=== PATIENT | male | born 2000 | race Hispanic/Latino ===

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

== ENCOUNTER 2021-01-09 18:33 | Emergency (ER) | payer MEDICAID, OTHER, SELFPAY ==
[2021-01-09] MEDS ORDERED: LORAZEPAM 2 MG/ML 1 ML VIAL ONE (18:42)
[2021-01-09 19:04] LABS: BASOPHILS % (AUTO) 0.3 % (0.0-5.0); EOSINOPHILS % (AUTO) 0.1 % (0.0-8.0); HEMATOCRIT 38.3 % (42-54); MEAN CORPUSCULAR HEMOGLOBIN 30.4 pg (27.0-33.0); MEAN CORPUSCULAR HGB CONC 35.2 g/dL (32.0-36.0); MEAN CORPUSCULAR VOLUME 86.3 fL (80-100); MONOCYTES % (AUTO) 3.6 % (3.0-13.0); NEUTROPHILS % (AUTO) 88.3 % (40.0-77.0); PLATELET COUNT (AUTO) 278 K/uL (130-400); RED BLOOD CELL COUNT(AUTO) 4.44 MIL/uL (4.50-6.20); RED CELL DISTRIBUTION WIDTH 11.9 % (11.0-15.5)
[2021-01-09 19:16] LABS: CREATININE 1.1 mg/dL (0.5-1.5); POTASSIUM 3.2 mmol/L (3.5-5.1)
[2021-01-09 19:21] LABS: ALBUMIN 4.6 g/dL (3.5-5.0); BILIRUBIN,TOTAL 0.5 mg/dL (0.2-1.0); TOTAL PROTEIN, SERUM 8.2 g/dL (6.0-8.3)
[2021-01-09] MEDS ORDERED: 0.9% NACL 500ML IV.SOLN 500 ML IV ONE (19:31)
[2021-01-09] MEDS ORDERED: POTASSIUM BICARB/CIT AC 25 MEQ TABLET.EFF ONE (21:06)
== END 2021-01-09 21:51 | disposition home or self-care (01) ==
LOC: EDH 18:33
DX: B34.9 Viral infection, unspecified (principal); F41.9 Anxiety disorder, unspecified; Z20.822 Contact with and (suspected) exposure to COVID-19
CPT/HCPCS: 36415; 71045; 80053; 80177; 85025; 87426; 87804 ×2; 87880; 96361; 96374; 96375; 99284; J2060; J7040; U0003